=== PATIENT | male | born 1945 | race Caucasian/White ===

== ENCOUNTER → 2019-06-24 | Outpatient (CLI) | payer OTHER, MEDICARE ==
[~2019-06-24] MED LIST: AVELOX 400 MG400 M1 PO; AVELOX400 MG PO; COMBIGAN EYE DR10 ML OPHTHALMIC; COUMADIN 4 MG TA4 M1 PO; ENOXAPARIN120 MG/0.8; ENOXAPARIN120 MG/0.8 SQ; JANTOVEN5 MG PO; KEPPRA 500 MG500 M1 PO; KEPPRA 500 MG500 MG; KEPPRA 500 MG500 MG PO; KEPPRA250 MG PO; LISINOPRIL20 MG PO; NORCO 5-325 TA1 EACH PO; NORVASC 5 MG TAB5 MG PO; PRILOSEC 10MG C10 MG PO; PRILOSEC 20 MG20 MG PO
== END ==
LOC: ULTRA 14:13
DX: R60.0 Localized edema (principal); M79.89 Other specified soft tissue disorders